=== PATIENT | female | born 1950 | race Caucasian/White ===

== ENCOUNTER 2016-05-28 07:20 | Day surgery (SDC) | payer OTHER, MEDICAID ==
[~2016-05-28] VITALS: Ht 160 cm; Wt 77.1 kg
[2016-05-28] MEDS ORDERED: SIMETHICONE 40 MG/0.6 ML ML ONE (08:08)
[2016-05-28] MEDS ORDERED: MIDAZOLAM HCL 5 MG/5 ML VIAL ONE (08:08)
[2016-05-28] MEDS: fentaNYL CITRATE/PF 100 MCG/2 ML AMP ONE ×2 (09:09→09:13)
[2016-05-28] MEDS: MIDAZOLAM HCL 5 MG/5 ML VIAL ONE ×3 (09:09→09:27)
[2016-05-28 12:51] VITALS: BP 121/70; PULSE 86; RESP 14
== END 2016-05-28 10:25 | disposition home or self-care (01) ==
LOC: SDS 07:20 → SMU 07:52 → SDS 10:25
PROVIDERS: ATTEND Internal Medicine
DX: Z12.11 Encounter for screening for malignant neoplasm of colon (principal); D12.2 Benign neoplasm of ascending colon; D12.3 Benign neoplasm of transverse colon
CPT/HCPCS: 45385; 88305; J2250; J3010